=== PATIENT | male | born 1940 | race Caucasian/White ===

== ENCOUNTER 2021-05-24 09:39 | Inpatient (IN) | payer OTHER ==
[~2021-05-24] VITALS: Ht 160 cm; Wt 59.0 kg
[2021-05-24 10:37] LABS: HEMOGLOBIN 13.8 gm/dl (14.0-17.5); RED BLOOD COUNT 4.73 M/UL (4.20-5.50)
[2021-05-24 10:59] LABS: BUN/CREATININE RATIO 18 (0-10)
[2021-05-24] MEDS ORDERED: IMIPRAMINE HCL25 MG PO (14:11)
[2021-05-24] MEDS ORDERED: MIRTAZAPINE15 MG PO (14:12)
[2021-05-24] MEDS ORDERED: ATIVAN 1MG TABLE1 MG PO (14:13)
[2021-05-25 08:05] LABS: RED BLOOD COUNT 5.22 M/UL (4.20-5.50); WHITE BLOOD COUNT 9.4 K/UL (4.5-11.0)
[2021-05-25 08:29] LABS: BUN/CREATININE RATIO 19 (0-10)
[2021-05-26 04:12] LABS: HEMOGLOBIN 14.5 gm/dl (14.0-17.5); RED BLOOD COUNT 5.01 M/UL (4.20-5.50)
[2021-05-26 04:35] LABS: BUN/CREATININE RATIO 18 (0-10)
[2021-05-26] MEDS ORDERED: CRESTOR 10 MG T10 MG PO (16:24)
== END 2021-05-27 00:15 | disposition short-term general hospital (02) | DRG 281 ==
LOC: ER1 09:39 → PROG CARE 11:25 → CDU 11:25 → PROG CARE 18:51
PROVIDERS: Physician Assistant; Physician Assistant Medical; ADMIT Internal Medicine
PROC: B24BZZ4 Ultrasonography of Heart with Aorta, Transesophageal (ICD-10-PCS; principal; 2021-05-25)
PROC: 4A023N8 Measurement of Cardiac Sampling and Pressure, Bilateral, Percutaneous Approach (ICD-10-PCS; 2021-05-26)
PROC: B2111ZZ Fluoroscopy of Multiple Coronary Arteries using Low Osmolar Contrast (ICD-10-PCS; 2021-05-26)
PROC: B2151ZZ Fluoroscopy of Left Heart using Low Osmolar Contrast (ICD-10-PCS; 2021-05-26)
DX: I21.4 Non-ST elevation (NSTEMI) myocardial infarction (principal); I42.9 Cardiomyopathy, unspecified; I25.10 Atherosclerotic heart disease of native coronary artery without angina pectoris; Z20.822 Contact with and (suspected) exposure to COVID-19; F41.9 Anxiety disorder, unspecified; E78.5 Hyperlipidemia, unspecified; I27.20 Pulmonary hypertension, unspecified; I08.3 Combined rheumatic disorders of mitral, aortic and tricuspid valves; Z88.8 Allergy status to other drugs, medicaments and biological substances; Z82.49 Family history of ischemic heart disease and other diseases of the circulatory system
CPT/HCPCS: ECHO; 36415; 71045; 80048; 80053; 80061; 82550; 82553; 83735; 83874; 83880; 84484; 85025; 85027; 85610; 85730; 93005; 93306; 99152; 99153; 99285; C1751; C1769; J0696; J1644; J2250; J3010; J7040; Q9965; U0002